=== PATIENT | male | born 2000 | race Hispanic/Latino ===

== ENCOUNTER 2024-12-01 06:27 | Day surgery (SDC) | payer OTHER ==
[~2024-12-01] VITALS: Ht 188 cm; Wt 104.7 kg
[~2024-12-01 06:27] MED LIST: ACET-907 PO; NAPR-885 PO
[2024-12-01] MEDS ORDERED: LIDOCAINE 2% INJ 100 MG/5 ML SYRINGE As Ordered ONE (06:56)
[2024-12-01] MEDS ORDERED: GABA-1172 PO (07:16)
[2024-12-01 08:06] VITALS: TEMP 97.9
[2024-12-01 08:25] VITALS: BP 134/75; O2SAT 98
== END 2024-12-01 08:55 | disposition home or self-care (01) ==
LOC: M OPP 06:27
PROVIDERS: ATTEND Internal Medicine Gastroenterology
DX: K64.0 First degree hemorrhoids (principal); R19.4 Change in bowel habit; K29.50 Unspecified chronic gastritis without bleeding; R12 Heartburn; Z88.8 Allergy status to other drugs, medicaments and biological substances; Z79.899 Other long term (current) drug therapy
CPT/HCPCS: 43239; 45378; 88305; J3010